=== PATIENT | female | born 1970 | race American Indian/Alaskan Native ===

== ENCOUNTER 2021-01-07 14:53 | Inpatient (IN) | payer MEDICAID, OTHER ==
[2021-01-07] MEDS ORDERED: Sodium Chloride 0.9% 1,000 ML IV ONE ×2 (15:52→18:49)
[2021-01-07] MEDS ORDERED: Ondansetron 4 MG/2 ML SDV IVPUSH ONE (15:52)
--- NOTE | 2021-01-07 16:24 | CR ---
INDICATION: Cough, fever TECHNIQUE: Chest 1 view. COMPARISON: None FINDINGS: The heart size and central vascular pattern are within the normal range. The lungs are clear. No pleural effusions are identified. IMPRESSION: No acute cardiopulmonary disease is evident. Dictated by Fabio Dutton MD @ 01/07/2021 4:22:[address] Fabio Dutton @ Jan 07 2021 4:22PM
[2021-01-07] MEDS ORDERED: cefTRIAXone 1 GM in Premix Bag 1 BAG IV ONE (16:59)
[2021-01-07 17:09] LABS: CARBON DIOXIDE,CO2 20.9 mmol/L (21.0-32.0); POTASSIUM,K 3.6 mmol/L (3.5-5.1)
[2021-01-07] MEDS ORDERED: Iopamidol 755 MG/ML 500 ML Multipack Bottle IVPUSH STA (17:43)
--- NOTE | 2021-01-07 18:08 | CT ---
INDICATION: Right lower quadrant pain TECHNIQUE: CT Abdomen and pelvis with i.v. contrast. Coronal and sagittal reformats were obtained. CONTRAST: 100 mL Isovue 370 COMPARISON: None FINDINGS: Lower chest: Unremarkable. Liver: Unremarkable. Spleen: Unremarkable. Pancreas: Unremarkable. Gallbladder: Unremarkable. Kidney: Mild atrophy of the right kidney is present with a lobulated morphology. Mild enhancement of the right ureteral and renal pelvis urothelium is seen with trace right perinephric edema. Adrenal: Unremarkable. Bowel: Unremarkable. The appendix is normal in appearance and size. A moderate periumbilical fat containing hernia is noted. Vascular: Unremarkable. Lymph: Unremarkable. Peritoneum: Unremarkable. No pneumoperitoneum is seen. No significant ascites is noted. Pelvis: The left uterine myometrium has a swirled appearance measuring 2.8 cm which may be due to uterine fibroid. Soft tissue: Unremarkable. Bone: A tiny bone island is present in the left sacral ala. IMPRESSIONS: 1. A moderate periumbilical fat containing hernia is noted. 2. Mild enhancement of the right ureteral and renal pelvis urothelium is seen with trace right perinephric edema. Correlation with urinalysis is recommended to exclude an ascending urinary tract infection and infectious pyelitis. Dictated by Alon Newell MD @ 01/07/2021 6:06:33 PM Please note that all CT scans at this facility use dose modulation, iterative reconstruction, and/or weight-based dosing when appropriate to reduce radiation dose to as low as reasonably achievable. Dictated by: Alon Newell MD @ 01/07/2021 18:06:39 (Electronically Signed)
[2021-01-07] MEDS ORDERED: Morphine 4 MG/ML Syringe IVPUSH ONE (18:42)
--- NOTE | 2021-01-07 18:56 | EDM.PDOC ---
ED HPI GENERAL MEDICAL PROBLEM - General Chief Complaint: Genitourinary Problem Stated Complaint: UTI PAIN IN KIDNEYS SHAKEY SWEATS AND CHILLS Time Seen by Provider: 01/07/21 14:58 Source of Information: Reports: Patient History Limitations: Reports: No Limitations - History of Present Illness INITIAL COMMENTS - FREE TEXT/NARRATIVE: HISTORY AND PHYSICAL: History of present illness: Patient is a 50-year-old female who presents emergency room today with concern of right-sided abdominal pain, nausea, fatigue that started this morning and worsened throughout the day. Patient states that she is concerned because she has "kidney pain "but states that her whole right abdomen is hurting. Patient states that she has had chills but has not documented a fever at home. Patient states that she has been nauseous and not wanting to eat today due to her symptoms. Patient states that she was playing bingo this afternoon and started feeling "shaky "and states that she felt if she tried to do too much, that she would have to sit down due to weakness. Patient states she has not taken anything for her symptoms. Patient denies fever, chest pain, shortness of breath, or cough. Denies headache, neck stiff ness, change in vision, syncope, or near syncope. Denies vomiting, diarrhea, constipation, or dysuria. Has not noted any blood in urine or stool. Review of systems: As per history of present illness and below otherwise all systems reviewed and negative. Past medical history: As per history of present illness and as reviewed below otherwise noncontributory. Surgical history: As per history of present illness and as reviewed below otherwise noncontributory. Social history: See social history for further information Family history: As per history of present illness and as reviewed below otherwise noncontributory. Physical exam: General: Patient is alert, oriented, and in no acute distress. Patient laying comfortably on exam table, tearful on exam. Mildly tachycardic 105 on exam, otherwise vitally stable and reviewed by me. HEENT: Atraumatic, normocephalic, pupils equal and reactive bilaterally, negative for conjunctival pallor or scleral icterus, mucous membranes moist, TMs normal bilaterally, throat clear, neck supple, nontender, trachea midline. No drooling or trismus noted. No meningeal signs. No hot potato voice noted. Lungs: Clear to auscultation, breath sounds equal bilaterally, chest nontender. Heart: S1S2, regular rate and rhythm without overt murmur Abdomen: Soft, nondistended, moderate right upper and lower abdominal pain and tenderness on exam. Negative for masses or hepatosplenomegaly. Positive for costovertebral tenderness of the right. Pelvis: Stable nontender. Genitourinary: Deferred. Rectal: Deferred. Skin: Intact, warm, dry. No lesions or rashes noted. Extremities: Atraumatic, negative for cords or calf pain. Neurovascular unremarkable. Neuro: Awake, alert, oriented. Cranial nerves II through XII unremarkable. Cere bellum unremarkable. Motor and sensory unremarkable throughout. Exam nonfocal. Notes: Patient is a 50-year-old female who presents to the ED today with concern of right-sided flank/abdominal pain with nausea starting this morning. Upon arrival to the ED, patient is mildly tachycardic 105 on exam, otherwise vitally stable. Patient does have significant right-sided abdominal pain on exam. Will obtain basic lab work with intention of obtaining abdominal pelvic CT scan. CBC shows a leukocytosis at 17.28, red blood cells are decreased at 3.71, with mild decrease of hemoglobin at 11.7, and hematocrit of hematocrit of 35.3. Remainder of CBC unremarkable. CMP shows a mild hyponatremia at 133, CO2 decreased at 20.9. AST and ALT mildly elevated at 59 and 78 respectively. Lactic acid is within normal limits at 1.4. hCG is negative. Urinalysis does show positive nitrate with positive leukocyte Estrace with 15-20 white blood cells, 0-2 red blood cells and 1+ bacteria impression: Acute cystitis. Covid is negative. Blood cultures x2 pending. Chest x-ray shows no acute cardiopulmonary disease. Abdominal pelvic CT scan shows a moderate periumbilical fat-containing hernia. Mild enhancement of the right ureteral and renal pelvis is seen with trace right perinephritic edema. Correlate with urinalysis is recommended to exclude an a sending urinary tract infection or infectious pyelitis. Upon reevaluation of patient, she has improvement of her symptoms with therapeutics given today in the ED. Her heart rate has normalized with fluid bolus in therapeutics and is now 90 bpm and patient remains otherwise vitally stable. I did call and speak to the hospitalist on-call, Dr. Cobb, and thoroughly discussed patient's case. Will admit to observation to Dr. Cobb. Voices understanding and is agreeable to plan of care. Denies any further questions or concerns at this time. Diagnostics: CBC, CMP, UA w culture, chest x-ray, lipase, COVID-19, abdominal pelvic CT with contrast, chest x-ray, lactate, blood cultures x2 Therapeutics: Normal saline, Zofran, morphine, Rocephin 1 g IV Impression: Acute pyelonephritis Plan: Admit to observation to Dr. Cobb Definitive disposition and diagnosis as appropriate pending reevaluation and review of above. 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 Musculoskeletal History: Reports: None Neurological History: Reports: None Psychiatric History: Reports: None Endocrine/Metabolic History: Reports: None Hematologic History: Reports: None Immunologic History: Reports: None Oncologic (Cancer) History: Reports: None Dermatologic History: Reports: None - Infectious Disease History Infectious Disease History: Reports: Chicken Pox, Novel Coronavirus - Past Surgical History Head Surgeries/Procedures: Reports: None Social & Family History - Family History Family Medical History: No Pertinent Family History - Tobacco Use Tobacco Use Status *Q: Former Tobacco User Used Tobacco, but Quit: Yes Month/Year Tobacco Last Used: 1 year - Caffeine Use Caffeine Use: Reports: None - Recreational Drug Use Recreational Drug Use: No ED ROS GENERAL - Review of Systems Review Of Systems: Comprehensive ROS is negative, except as noted in HPI. ED EXAM, GENERAL - Physical Exam Exam: See Below (See dictation) Course - Vital Signs Last Recorded V/S: Last Vital Signs Temp 99.2 F 01/07/21 15:44 Pulse 104 H 01/07/21 15:44 Resp 18 01/07/21 15:44 BP 133/77 01/07/21 15:44 Pulse Ox 98 01/07/21 15:44 - Orders/Labs/Meds Orders: Active Orders 24 hr Category Date Time Status CULTURE BLOOD [BC] Stat Lab 01/07/21 17:15 Received CULTURE BLOOD [BC] Stat Lab 01/07/21 17:20 Received CULTURE URINE [MREF] Stat Lab 01/07/21 16:30 Received Blood Culture x2 Reflex Set [OM.PC] Stat Oth 01/07/21 16:59 Ordered Labs: Laboratory Tests 01/07/21 01/07/21 01/07/21 Range/Units 16:30 16:30 16:30 WBC 17.28 H (4.0-11.0) K/uL RBC 3.71 L (4.30-5.90) M/uL Hgb 11.7 L (12.0-16.0) g/dL Hct 35.3 L (36.0-46.0) % MCV 95.1 (80.0-98.0) fL MCH 31.5 (27.0-32.0) pg MCHC 33.1 (31.0-37.0) g/dL RDW Std Deviation 46.3 (28.0-62.0) fl RDW Coeff of Xavier 13 (11.0-15.0) % Plt Count 252 (150-400) K/uL MPV 11.80 (7.40-12.00) fL Neut % (Auto) 87.2 H (48.0-80.0) % Lymph % (Auto) 5.8 L (16.0-40.0) % [place] % (Auto) 6.1 (0.0-15.0) % Eos % (Auto) 0.8 (0.0-7.0) % Baso % (Auto) 0.1 (0.0-1.5) % Neut # (Auto) 15.1 H (1.4-5.7) K/uL Lymph # (Auto) 1.0 (0.6-2.4) K/uL [place] # (Auto) 1.1 H (0.0-0.8) K/uL Eos # (Auto) 0.1 (0.0-0.7) K/uL Baso # (Auto) 0.0 (0.0-0.1) K/uL Nucleated RBC % 0.0 /100WBC Nucleated RBCs # 0 K/uL Sodium 133 L (136-145) mmol/L Potassium 3.6 (3.5-5.1) mmol/L Chloride 100 (98-107) mmol/L Carbon Dioxide 20.9 L (21.0-32.0) mmol/L BUN 17 (7.0-18.0) mg/dL Creatinine 1.0 (0.6-1.0) mg/dL Est Cr Clr Drug Dosing 67.14 mL/min Estimated GFR (MDRD) 58.5 ml/min Glucose 100 (74-106) mg/dL Lactic Acid (0.4-2.0) mmol/L Calcium 8.8 (8.5-10.1) mg/dL Total Bilirubin 0.8 (0.2-1.0) mg/dL AST 59 H (15-37) IU/L ALT 78 H (14-63) IU/L Alkaline Phosphatase 111 (46-116) U/L Total Protein 7.7 (6.4-8.2) g/dL Albumin 3.7 (3.4-5.0) g/dL Globulin 4.0 (2.6-4.0) g/dL Albumin/Globulin Ratio 0.9 (0.9-1.6) Lipase 83 (73-393) U/L HCG, Qual (NEG) Urine Color YELLOW Urine Appearance SLT CLOUDY Urine pH 8.0 (5.0-8.0) Ur Specific [place] 1.020 (1.001-1.035) Urine Protein TRACE H (NEGATIVE) mg/dL Urine Glucose (UA) NEGATIVE (NEGATIVE) mg/dL Urine Ketones NEGATIVE (NEGATIVE) mg/dL Urine Occult Blood TRACE-INTACT H (NEGATIVE) Urine Nitrite POSITIVE H (NEGATIVE) Urine Bilirubin NEGATIVE (NEGATIVE) Urine Urobilinogen 0.2 (<2.0) EU/dL Ur Leukocyte Esterase MODERATE H (NEGATIVE) Urine RBC 0-2 (0-2/HPF) Urine WBC 15-20 (0-5/HPF) Ur Epithelial Cells RARE (NONE-FEW) Urine Bacteria 1+ H (NEGATIVE) SARS-CoV-2 RNA ([place]) (NEGATIVE) 01/07/21 01/07/21 01/07/21 Range/Units 16:30 16:30 17:15 WBC (4.0-11.0) K/uL RBC (4.30-5.90) M/uL Hgb (12.0-16.0) g/dL Hct (36.0-46.0) % MCV (80.0-98.0) fL MCH (27.0-32.0) pg MCHC (31.0-37.0) g/dL RDW Std Deviation (28.0-62.0) fl RDW Coeff of Xavier (11.0-15.0) % Plt Count (150-400) K/uL MPV (7.40-12.00) fL Neut % (Auto) (48.0-80.0) % Lymph % (Auto) (16.0-40.0) % [place] % (Auto) (0.0-15.0) % Eos % (Auto) (0.0-7.0) % Baso % (Auto) (0.0-1.5) % Neut # (Auto) (1.4-5.7) K/uL Lymph # (Auto) (0.6-2.4) K/uL [place] # (Auto) (0.0-0.8) K/uL Eos # (Auto) (0.0-0.7) K/uL Baso # (Auto) (0.0-0.1) K/uL Nucleated RBC % /100WBC Nucleated RBCs # K/uL Sodium (136-145) mmol/L Potassium (3.5-5.1) mmol/L Chloride (98-107) mmol/L Carbon Dioxide (21.0-32.0) mmol/L BUN (7.0-18.0) mg/dL Creatinine (0.6-1.0) mg/dL Est Cr Clr Drug Dosing mL/min Estimated GFR (MDRD) ml/min Glucose (74-106) mg/dL Lactic Acid 1.4 (0.4-2.0) mmol/L Calcium (8.5-10.1) mg/dL Total Bilirubin (0.2-1.0) mg/dL AST (15-37) IU/L ALT (14-63) IU/L Alkaline Phosphatase (46-116) U/L Total Protein (6.4-8.2) g/dL Albumin (3.4-5.0) g/dL Globulin (2.6-4.0) g/dL Albumin/Globulin Ratio (0.9-1.6) Lipase (73-393) U/L HCG, Qual NEGATIVE (NEG) Urine Color Urine Appearance Urine pH (5.0-8.0) Ur Specific [place] (1.001-1.035) Urine Protein (NEGATIVE) mg/dL Urine Glucose (UA) (NEGATIVE) mg/dL Urine Ketones (NEGATIVE) mg/dL Urine Occult Blood (NEGATIVE) Urine Nitrite (NEGATIVE) Urine Bilirubin (NEGATIVE) Urine Urobilinogen (<2.0) EU/dL Ur Leukocyte Esterase (NEGATIVE) Urine RBC (0-2/HPF) Urine WBC (0-5/HPF) Ur Epithelial Cells (NONE-FEW) Urine Bacteria (NEGATIVE) SARS-CoV-2 RNA ([place]) NEGATIVE (NEGATIVE) Meds: Medications Discontinued Medications Generic Name Dose Route Start Last Admin Trade Name Freq PRN Reason Stop Dose Admin Sodium Chloride 1,000 mls @ 999 mls/hr 01/07/21 15:52 01/07/21 16:34 Normal Saline IV 01/07/21 16:52 999 mls/hr BOLUS ONE Administration Ceftriaxone Sodium/Dextrose 1 50 mls @ 100 mls/hr 01/07/21 16:59 01/07/21 17:44 gm/ Premix IV 01/07/21 17:28 100 mls/hr ONETIME ONE Administration Sodium Chloride 1,000 mls @ 999 mls/hr 01/07/21 18:49 Normal Saline IV 01/07/21 19:49 STAT ONE Iopamidol 100 ml 01/07/21 17:43 01/07/21 17:43 Iopamidol 755 Mg/Ml 500 Ml Multipack Bottle IVPUSH 01/07/21 17:44 100 ml ONETIME STA Administration Morphine Sulfate 4 mg 01/07/21 18:42 Morphine 4 Mg/Ml Syringe IVPUSH 01/07/21 18:43 ONETIME ONE Ondansetron HCl 4 mg 01/07/21 15:52 01/07/21 16:34 Ondansetron 4 Mg/2 Ml Sdv IVPUSH 01/07/21 15:53 4 mg ONETIME ONE Administration Departure - Departure Time of Disposition: 18:57 Disposition: Refer to Observation Clinical Impression: Acute pyelonephritis - Discharge Information Sepsis Event Note (ED) - Evaluation Sepsis Screening Result: No Definite Risk - Focused Exam Vital Signs: Vital Signs Temp Pulse Resp BP Pulse Ox 01/07/21 15:44 99.2 F 104 H 18 133/77 98 - My Orders Last 24 Hours: My Active Orders 01/07/21 16:30 CULTURE URINE [MREF] Stat 01/07/21 16:59 Blood Culture x2 Reflex Set [OM.PC] Stat 01/07/21 17:15 CULTURE BLOOD [BC] Stat 01/07/21 17:20 CULTURE BLOOD [BC] Stat - Assessment/Plan Last 24 Hours: My Active Orders 01/07/21 16:30 CULTURE URINE [MREF] Stat 01/07/21 16:59 Blood Culture x2 Reflex Set [OM.PC] Stat 01/07/21 17:15 CULTURE BLOOD [BC] Stat 01/07/21 17:20 CULTURE BLOOD [BC] Stat
[2021-01-07] MEDS ORDERED: Morphine 4 MG/ML Syringe ONE (21:09)
[2021-01-07] MEDS ORDERED: Acetaminophen 325 MG Tab PO PRN (23:22)
[2021-01-07] MEDS ORDERED: Sodium Chloride 0.9% 1,000 ML IV SCH (23:30)
--- NOTE | 2021-01-07 23:32 | PCM.HP.2 ---
H&P History of Present Illness - General Date of Service: 01/07/21 Admit Problem/Dx: Admission Diagnosis/Problem Admission Diagnosis/Problem Acute pyelonephritis - History of Present Illness Initial Comments - Free Text/Narative: 50 yo female who presented with one day history of right kidney pain, and dysuria and urinary urgency. Patient report history of frequent UTIs. She was found to have WBC of 17,000 and pyuria on UA. CT scan of abdomen reported right ureteral and renal pelvic enhancement with sligh perinephric edema. Right Lower Flank Pain Score (Numeric/FACES): 5 bilateral lower abdomen Pain Score (Numeric/FACES): 6 - Related Data Allergies/Adverse Reactions: Allergies Allergy/AdvReac Type Severity Reaction Status Date / Time naproxen Allergy Hives Verified 01/07/21 22:54 Home Medications: Home Meds Folic Acid 01/07/21 [History] Lidocaine 1 each TP ASDIRECTED PRN 01/07/21 [History] Multivitamin [Multi-Vitamin Daily] 01/07/21 [History] Thiamine HCl [Vitamin B-1] 01/07/21 [History] Past Medical History HEENT History: Reports: None Cardiovascular History: Reports: None Respiratory History: Reports: None Gastrointestinal History: Reports: Pancreatitis Genitourinary History: Reports: None 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 Musculoskeletal History: Reports: None Neurological History: Reports: None Psychiatric History: Reports: None Endocrine/Metabolic History: Reports: None Hematologic History: Reports: None Immunologic History: Reports: None Oncologic (Cancer) History: Reports: None Dermatologic History: Reports: None - Infectious Disease History Infectious Disease History: Reports: Chicken Pox, Novel Coronavirus - Past Surgical History Head Surgeries/Procedures: Reports: None Social & Family History - Family History Family Medical History: No Pertinent Family History - Tobacco Use Tobacco Use Status *Q: Former Tobacco User Used Tobacco, but Quit: Yes Month/Year Tobacco Last Used: 3 weeks ago - Caffeine Use Caffeine Use: Reports: Coffee, Soda, Tea - Recreational Drug Use Recreational Drug Use: No H&P Review of Systems - Review of Systems: Review Of Systems: Comprehensive ROS is negative, except as noted in HPI. Exam - Exam Exam: See Below - Vital Signs Vital Signs: Last Vital Signs Temp 36.7 C 01/07/21 22:20 Pulse 78 01/07/21 22:20 Resp 18 01/07/21 22:20 BP 116/67 01/07/21 22:20 Pulse Ox 100 01/07/21 22:20 Weight: 70.896 kg - Exam General: Alert, Oriented HEENT: Mucosa Moist & [place] Lungs: Clear to Auscultation, Normal Respiratory Effort Cardiovascular: Regular Rate, Regular Rhythm GI/Abdominal Exam: Soft, Non-Tender Back Exam: CVA Tenderness (R) Extremities: Non-Tender, No Pedal Edema Skin: Warm, Dry, Intact Neurological: No: Focal Deficit - Patient Data Lab Results Last 24 hrs: Laboratory Results - last 24 hr 01/07/21 01/07/21 01/07/21 Range/Units 16:30 16:30 16:30 WBC 17.28 H (4.0-11.0) K/uL RBC 3.71 L (4.30-5.90) M/uL Hgb 11.7 L (12.0-16.0) g/dL Hct 35.3 L (36.0-46.0) % MCV 95.1 (80.0-98.0) fL MCH 31.5 (27.0-32.0) pg MCHC 33.1 (31.0-37.0) g/dL RDW Std Deviation 46.3 (28.0-62.0) fl RDW Coeff of Xavier 13 (11.0-15.0) % Plt Count 252 (150-400) K/uL MPV 11.80 (7.40-12.00) fL Neut % (Auto) 87.2 H (48.0-80.0) % Lymph % (Auto) 5.8 L (16.0-40.0) % [place] % (Auto) 6.1 (0.0-15.0) % Eos % (Auto) 0.8 (0.0-7.0) % Baso % (Auto) 0.1 (0.0-1.5) % Neut # (Auto) 15.1 H (1.4-5.7) K/uL Lymph # (Auto) 1.0 (0.6-2.4) K/uL [place] # (Auto) 1.1 H (0.0-0.8) K/uL Eos # (Auto) 0.1 (0.0-0.7) K/uL Baso # (Auto) 0.0 (0.0-0.1) K/uL Nucleated RBC % 0.0 /100WBC Nucleated RBCs # 0 K/uL Sodium 133 L (136-145) mmol/L Potassium 3.6 (3.5-5.1) mmol/L Chloride 100 (98-107) mmol/L Carbon Dioxide 20.9 L (21.0-32.0) mmol/L BUN 17 (7.0-18.0) mg/dL Creatinine 1.0 (0.6-1.0) mg/dL Est Cr Clr Drug Dosing 67.14 mL/min Estimated GFR (MDRD) 58.5 ml/min Glucose 100 (74-106) mg/dL Lactic Acid (0.4-2.0) mmol/L Calcium 8.8 (8.5-10.1) mg/dL Total Bilirubin 0.8 (0.2-1.0) mg/dL AST 59 H (15-37) IU/L ALT 78 H (14-63) IU/L Alkaline Phosphatase 111 (46-116) U/L Total Protein 7.7 (6.4-8.2) g/dL Albumin 3.7 (3.4-5.0) g/dL Globulin 4.0 (2.6-4.0) g/dL Albumin/Globulin Ratio 0.9 (0.9-1.6) Lipase 83 (73-393) U/L HCG, Qual (NEG) Urine Color YELLOW Urine Appearance SLT CLOUDY Urine pH 8.0 (5.0-8.0) Ur Specific [place] 1.020 (1.001-1.035) Urine Protein TRACE H (NEGATIVE) mg/dL Urine Glucose (UA) NEGATIVE (NEGATIVE) mg/dL Urine Ketones NEGATIVE (NEGATIVE) mg/dL Urine Occult Blood TRACE-INTACT H (NEGATIVE) Urine Nitrite POSITIVE H (NEGATIVE) Urine Bilirubin NEGATIVE (NEGATIVE) Urine Urobilinogen 0.2 (<2.0) EU/dL Ur Leukocyte Esterase MODERATE H (NEGATIVE) Urine RBC 0-2 (0-2/HPF) Urine WBC 15-20 (0-5/HPF) Ur Epithelial Cells RARE (NONE-FEW) Urine Bacteria 1+ H (NEGATIVE) SARS-CoV-2 RNA ([place]) (NEGATIVE) 01/07/21 01/07/21 01/07/21 Range/Units 16:30 16:30 17:15 WBC (4.0-11.0) K/uL RBC (4.30-5.90) M/uL Hgb (12.0-16.0) g/dL Hct (36.0-46.0) % MCV (80.0-98.0) fL MCH (27.0-32.0) pg MCHC (31.0-37.0) g/dL RDW Std Deviation (28.0-62.0) fl RDW Coeff of Xavier (11.0-15.0) % Plt Count (150-400) K/uL MPV (7.40-12.00) fL Neut % (Auto) (48.0-80.0) % Lymph % (Auto) (16.0-40.0) % [place] % (Auto) (0.0-15.0) % Eos % (Auto) (0.0-7.0) % Baso % (Auto) (0.0-1.5) % Neut # (Auto) (1.4-5.7) K/uL Lymph # (Auto) (0.6-2.4) K/uL [place] # (Auto) (0.0-0.8) K/uL Eos # (Auto) (0.0-0.7) K/uL Baso # (Auto) (0.0-0.1) K/uL Nucleated RBC % /100WBC Nucleated RBCs # K/uL Sodium (136-145) mmol/L Potassium (3.5-5.1) mmol/L Chloride (98-107) mmol/L Carbon Dioxide (21.0-32.0) mmol/L BUN (7.0-18.0) mg/dL Creatinine (0.6-1.0) mg/dL Est Cr Clr Drug Dosing mL/min Estimated GFR (MDRD) ml/min Glucose (74-106) mg/dL Lactic Acid 1.4 (0.4-2.0) mmol/L Calcium (8.5-10.1) mg/dL Total Bilirubin (0.2-1.0) mg/dL AST (15-37) IU/L ALT (14-63) IU/L Alkaline Phosphatase (46-116) U/L Total Protein (6.4-8.2) g/dL Albumin (3.4-5.0) g/dL Globulin (2.6-4.0) g/dL Albumin/Globulin Ratio (0.9-1.6) Lipase (73-393) U/L HCG, Qual NEGATIVE (NEG) Urine Color Urine Appearance Urine pH (5.0-8.0) Ur Specific [place] (1.001-1.035) Urine Protein (NEGATIVE) mg/dL Urine Glucose (UA) (NEGATIVE) mg/dL Urine Ketones (NEGATIVE) mg/dL Urine Occult Blood (NEGATIVE) Urine Nitrite (NEGATIVE) Urine Bilirubin (NEGATIVE) Urine Urobilinogen (<2.0) EU/dL Ur Leukocyte Esterase (NEGATIVE) Urine RBC (0-2/HPF) Urine WBC (0-5/HPF) Ur Epithelial Cells (NONE-FEW) Urine Bacteria (NEGATIVE) SARS-CoV-2 RNA ([place]) NEGATIVE (NEGATIVE) Result Diagrams: 01/08/21 05:20 01/08/21 05:18 Sepsis Event Note - Evaluation Sepsis Screening Result: No Definite Risk - Focused Exam Vital Signs: Vital Signs Temp Pulse Resp BP Pulse Ox 01/07/21 22:20 36.7 C 78 18 116/67 100 01/07/21 21:30 80 102/65 99 01/07/21 21:16 84 18 107/61 98 01/07/21 20:13 80 102/67 89 L 01/07/21 19:43 80 97/53 L 96 01/07/21 19:13 80 102/62 96 01/07/21 18:13 80 100/59 L 96 01/07/21 15:44 37.3 C 104 H 18 133/77 98 Problem List Initiated/Reviewed/Updated: Yes Orders Last 24hrs: Active Orders 24 hr Category Date Time Status Admission Status [Patient Status] [ADT] Stat ADT 01/07/21 18:43 Active Antiembolic Devices [RC] PER UNIT ROUTINE Care 01/07/21 23:24 Ordered Oxygen Therapy [RC] PRN Care 01/07/21 23:22 Ordered Up ad Sandra [RC] ASDIRECTED Care 01/07/21 23:22 Ordered VTE/DVT Education [RC] PER UNIT ROUTINE Care 01/07/21 23:22 Ordered Vital Signs [RC] Q4H Care 01/07/21 23:22 Ordered Regular Diet [DIET] Diet 01/07/21 Breakfast Ordered BASIC METABOLIC PANEL,BMP [CHEM] AM Lab 01/08/21 05:11 Ordered CBC WITH AUTO DIFF [HEME] AM Lab 01/08/21 05:11 Ordered CULTURE BLOOD [BC] Stat Lab 01/07/21 17:15 Received CULTURE BLOOD [BC] Stat Lab 01/07/21 17:20 Received CULTURE URINE [MREF] Stat Lab 01/07/21 16:30 Received Acetaminophen [TylenoL] Med 01/07/21 23:22 Ordered 650 mg PO Q6H PRN Enoxaparin [Lovenox] Med 01/07/21 23:30 Ordered 40 mg SUBCUT Q24H Sodium Chloride 0.9% @ 125 MLS/HR (1000ml) Med 01/07/21 23:30 Ordered Sodium Chloride 0.9% [Normal Saline] 1,000 ml IV ASDIRECTED cefTRIAXone [Rocephin] 1 gm Med 01/08/21 17:55 Ordered Sodium Chloride 0.9% [Normal Saline] 50 ml IV Q24H oxyCODONE Med 01/07/21 23:22 Ordered 5 mg PO Q4H PRN Blood Culture x2 Reflex Set [OM.PC] Stat Oth 01/07/21 16:59 Ordered Sequential Compression Device [OM.PC] Per Unit Routine Oth 01/07/21 23:23 Ordered Resuscitation Status Routine Resus Stat 01/07/21 23:22 Ordered Medication Orders Ceftriaxone Sodium 1 gm/ (Sodium Chloride) 50 mls @ 100 mls/hr IV Q24H BRANDON Assessment/Plan Comment:: 50 yo female admitted for pyelonephritis. We will treat with IV Rocephin. Cultures are pending.
[2021-01-07] MEDS: Enoxaparin 40 MG/0.4 ML Syringe SUBCUT SCH (23:41)
[2021-01-07] MEDS: oxyCODONE 5 MG Tab PO PRN (23:43)
[2021-01-08 06:15] LABS: BLOOD UREA NITROGEN,BUN 11 mg/dL (7.0-18.0); CARBON DIOXIDE,CO2 24.5 mmol/L (21.0-32.0); CHLORIDE,CL 105 mmol/L (98-107); GLUCOSE RANDOM 87 mg/dL (74-106); POTASSIUM,K 3.3 mmol/L (3.5-5.1); SODIUM,NA 137 mmol/L (136-145)
[2021-01-08] MEDS ORDERED: Ondansetron 4 MG/2 ML SDV IVPUSH PRN (08:12)
[2021-01-08] MEDS ORDERED: Sodium Chloride 0.9% 500 ML IV SCH (08:15)
--- NOTE | 2021-01-08 08:18 | PCM.PN ---
- General Info Date of Service: 01/08/21 Admission Dx/Problem (Free Text): Admission Diagnosis/Problem Admission Diagnosis/Problem Acute pyelonephritis Subjective Update: Feeling somewhat improved from last night. Reports intermittent sharp shooting abdominal pain/flank pain. No diarrhea since yesterday. NO nausea or vomiting. Denies chest pain or SOB. Eating and drinking well. Functional Status: Reports: Pain Controlled (oxycodone helps manage pain well. ), Tolerating Diet, Ambulating - Review of Systems General: Reports: Fatigue, Malaise. Denies: Fever, Weakness HEENT: Reports: No Symptoms, Headaches. Denies: Sore Throat, Visual Changes Pulmonary: Reports: No Symptoms. Denies: Shortness of Breath Cardiovascular: Reports: No Symptoms. Denies: Chest Pain Gastrointestinal: Reports: Abdominal Pain, Flatus. Denies: Diarrhea, Nausea, Vomiting Genitourinary: Reports: No Symptoms. Denies: Dysuria, Frequency, Burning Musculoskeletal: Reports: No Symptoms Skin: Reports: No Symptoms Neurological: Reports: No Symptoms Psychiatric: Reports: No Symptoms - Patient Data Vitals - Most Recent: Last Vital Signs Temp 98.6 F 01/08/21 08:00 Pulse 85 01/08/21 08:00 Resp 16 01/08/21 08:00 BP 98/57 L 01/08/21 08:00 Pulse Ox 94 L 01/08/21 08:00 Weight - Most Recent: 70.896 kg I&O - Last 24 Hours: Intake & Output 01/07/21 01/08/21 01/08/21 22:59 06:59 14:59 Intake Total 1106 Output Total 450 Balance 656 Lab Results Last 24 Hours: Laboratory Results - last 24 hr 01/07/21 01/07/21 01/07/21 Range/Units 16:30 16:30 16:30 WBC 17.28 H (4.0-11.0) K/uL RBC 3.71 L (4.30-5.90) M/uL Hgb 11.7 L (12.0-16.0) g/dL Hct 35.3 L (36.0-46.0) % MCV 95.1 (80.0-98.0) fL MCH 31.5 (27.0-32.0) pg MCHC 33.1 (31.0-37.0) g/dL RDW Std Deviation 46.3 (28.0-62.0) fl RDW Coeff of Xavier 13 (11.0-15.0) % Plt Count 252 (150-400) K/uL MPV 11.80 (7.40-12.00) fL Neut % (Auto) 87.2 H (48.0-80.0) % Lymph % (Auto) 5.8 L (16.0-40.0) % [place] % (Auto) 6.1 (0.0-15.0) % Eos % (Auto) 0.8 (0.0-7.0) % Baso % (Auto) 0.1 (0.0-1.5) % Neut # (Auto) 15.1 H (1.4-5.7) K/uL Lymph # (Auto) 1.0 (0.6-2.4) K/uL Webster # (Auto) 1.1 H (0.0-0.8) K/uL Eos # (Auto) 0.1 (0.0-0.7) K/uL Baso # (Auto) 0.0 (0.0-0.1) K/uL Nucleated RBC % 0.0 /100WBC Nucleated RBCs # 0 K/uL Sodium 133 L (136-145) mmol/L Potassium 3.6 (3.5-5.1) mmol/L Chloride 100 (98-107) mmol/L Carbon Dioxide 20.9 L (21.0-32.0) mmol/L BUN 17 (7.0-18.0) mg/dL Creatinine 1.0 (0.6-1.0) mg/dL Est Cr Clr Drug Dosing 67.14 mL/min Estimated GFR (MDRD) 58.5 ml/min Glucose 100 (74-106) mg/dL Lactic Acid (0.4-2.0) mmol/L Calcium 8.8 (8.5-10.1) mg/dL Total Bilirubin 0.8 (0.2-1.0) mg/dL AST 59 H (15-37) IU/L ALT 78 H (14-63) IU/L Alkaline Phosphatase 111 (46-116) U/L Total Protein 7.7 (6.4-8.2) g/dL Albumin 3.7 (3.4-5.0) g/dL Globulin 4.0 (2.6-4.0) g/dL Albumin/Globulin Ratio 0.9 (0.9-1.6) Lipase 83 (73-393) U/L HCG, Qual (NEG) Urine Color YELLOW Urine Appearance SLT CLOUDY Urine pH 8.0 (5.0-8.0) Ur Specific [place] 1.020 (1.001-1.035) Urine Protein TRACE H (NEGATIVE) mg/dL Urine Glucose (UA) NEGATIVE (NEGATIVE) mg/dL Urine Ketones NEGATIVE (NEGATIVE) mg/dL Urine Occult Blood TRACE-INTACT H (NEGATIVE) Urine Nitrite POSITIVE H (NEGATIVE) Urine Bilirubin NEGATIVE (NEGATIVE) Urine Urobilinogen 0.2 (<2.0) EU/dL Ur Leukocyte Esterase MODERATE H (NEGATIVE) Urine RBC 0-2 (0-2/HPF) Urine WBC 15-20 (0-5/HPF) Ur Epithelial Cells RARE (NONE-FEW) Urine Bacteria 1+ H (NEGATIVE) SARS-CoV-2 RNA ([place]) (NEGATIVE) 01/07/21 01/07/21 01/07/21 Range/Units 16:30 16:30 17:15 WBC (4.0-11.0) K/uL RBC (4.30-5.90) M/uL Hgb (12.0-16.0) g/dL Hct (36.0-46.0) % MCV (80.0-98.0) fL MCH (27.0-32.0) pg MCHC (31.0-37.0) g/dL RDW Std Deviation (28.0-62.0) fl RDW Coeff of Xavier (11.0-15.0) % Plt Count (150-400) K/uL MPV (7.40-12.00) fL Neut % (Auto) (48.0-80.0) % Lymph % (Auto) (16.0-40.0) % [place] % (Auto) (0.0-15.0) % Eos % (Auto) (0.0-7.0) % Baso % (Auto) (0.0-1.5) % Neut # (Auto) (1.4-5.7) K/uL Lymph # (Auto) (0.6-2.4) K/uL [place] # (Auto) (0.0-0.8) K/uL Eos # (Auto) (0.0-0.7) K/uL Baso # (Auto) (0.0-0.1) K/uL Nucleated RBC % /100WBC Nucleated RBCs # K/uL Sodium (136-145) mmol/L Potassium (3.5-5.1) mmol/L Chloride (98-107) mmol/L Carbon Dioxide (21.0-32.0) mmol/L BUN (7.0-18.0) mg/dL Creatinine (0.6-1.0) mg/dL Est Cr Clr Drug Dosing mL/min Estimated GFR (MDRD) ml/min Glucose (74-106) mg/dL Lactic Acid 1.4 (0.4-2.0) mmol/L Calcium (8.5-10.1) mg/dL Total Bilirubin (0.2-1.0) mg/dL AST (15-37) IU/L ALT (14-63) IU/L Alkaline Phosphatase (46-116) U/L Total Protein (6.4-8.2) g/dL Albumin (3.4-5.0) g/dL Globulin (2.6-4.0) g/dL Albumin/Globulin Ratio (0.9-1.6) Lipase (73-393) U/L HCG, Qual NEGATIVE (NEG) Urine Color Urine Appearance Urine pH (5.0-8.0) Ur Specific [place] (1.001-1.035) Urine Protein (NEGATIVE) mg/dL Urine Glucose (UA) (NEGATIVE) mg/dL Urine Ketones (NEGATIVE) mg/dL Urine Occult Blood (NEGATIVE) Urine Nitrite (NEGATIVE) Urine Bilirubin (NEGATIVE) Urine Urobilinogen (<2.0) EU/dL Ur Leukocyte Esterase (NEGATIVE) Urine RBC (0-2/HPF) Urine WBC (0-5/HPF) Ur Epithelial Cells (NONE-FEW) Urine Bacteria (NEGATIVE) SARS-CoV-2 RNA ([place]) NEGATIVE (NEGATIVE) 01/08/21 01/08/21 Range/Units 05:18 05:20 WBC 14.20 H (4.0-11.0) K/uL RBC 3.32 L (4.30-5.90) M/uL Hgb 10.6 L (12.0-16.0) g/dL Hct 31.8 L (36.0-46.0) % MCV 95.8 (80.0-98.0) fL MCH 31.9 (27.0-32.0) pg MCHC 33.3 (31.0-37.0) g/dL RDW Std Deviation 48.1 (28.0-62.0) fl RDW Coeff of Xavier 14 (11.0-15.0) % Plt Count 214 (150-400) K/uL MPV 12.00 (7.40-12.00) fL Neut % (Auto) 81.8 H (48.0-80.0) % Lymph % (Auto) 10.4 L (16.0-40.0) % [place] % (Auto) 6.5 (0.0-15.0) % Eos % (Auto) 1.1 (0.0-7.0) % Baso % (Auto) 0.2 (0.0-1.5) % Neut # (Auto) 11.6 H (1.4-5.7) K/uL Lymph # (Auto) 1.5 (0.6-2.4) K/uL [place] # (Auto) 0.9 H (0.0-0.8) K/uL Eos # (Auto) 0.2 (0.0-0.7) K/uL Baso # (Auto) 0.0 (0.0-0.1) K/uL Nucleated RBC % 0.0 /100WBC Nucleated RBCs # 0 K/uL Sodium 137 (136-145) mmol/L Potassium 3.3 L (3.5-5.1) mmol/L Chloride 105 (98-107) mmol/L Carbon Dioxide 24.5 (21.0-32.0) mmol/L BUN 11 (7.0-18.0) mg/dL Creatinine 0.8 (0.6-1.0) mg/dL Est Cr Clr Drug Dosing 84.26 mL/min Estimated GFR (MDRD) > 60.0 ml/min Glucose 87 (74-106) mg/dL Lactic Acid (0.4-2.0) mmol/L Calcium 8.0 L (8.5-10.1) mg/dL Total Bilirubin (0.2-1.0) mg/dL AST (15-37) IU/L ALT (14-63) IU/L Alkaline Phosphatase (46-116) U/L Total Protein (6.4-8.2) g/dL Albumin (3.4-5.0) g/dL Globulin (2.6-4.0) g/dL Albumin/Globulin Ratio (0.9-1.6) Lipase (73-393) U/L HCG, Qual (NEG) Urine Color Urine Appearance Urine pH (5.0-8.0) Ur Specific [place] (1.001-1.035) Urine Protein (NEGATIVE) mg/dL Urine Glucose (UA) (NEGATIVE) mg/dL Urine Ketones (NEGATIVE) mg/dL Urine Occult Blood (NEGATIVE) Urine Nitrite (NEGATIVE) Urine Bilirubin (NEGATIVE) Urine Urobilinogen (<2.0) EU/dL Ur Leukocyte Esterase (NEGATIVE) Urine RBC (0-2/HPF) Urine WBC (0-5/HPF) Ur Epithelial Cells (NONE-FEW) Urine Bacteria (NEGATIVE) SARS-CoV-2 RNA ([place]) (NEGATIVE) Med Orders - Current: Current Medications Acetaminophen (Acetaminophen 325 Mg Tab) 650 mg PO Q6H PRN PRN Reason: Pain (Mild 1-3)/fever Last Admin: 01/08/21 05:23 Dose: 650 mg Documented by: Enoxaparin Sodium (Enoxaparin 40 Mg/0.4 Ml Syringe) 40 mg SUBCUT Q24H BRANDON Last Admin: 01/07/21 23:41 Dose: 40 mg Documented by: Ceftriaxone Sodium 1 gm/ (Sodium Chloride) 50 mls @ 100 mls/hr IV Q24H BRANDON Sodium Chloride (Normal Saline) 500 mls @ 999 mls/hr IV .BOLUS BRANDON Sodium Chloride (Normal Saline) 1,000 mls @ 125 mls/hr IV Q8H BRANDON Ondansetron HCl (Ondansetron 4 Mg/2 Ml Sdv) 4 mg IVPUSH Q4H PRN PRN Reason: Nausea Oxycodone HCl (Oxycodone 5 Mg Tab) 5 mg PO Q4H PRN PRN Reason: Pain (moderate 4-6) Last Admin: 01/07/21 23:43 Dose: 5 mg Documented by: Discontinued Medications Sodium Chloride (Normal Saline) 1,000 mls @ 999 mls/hr IV BOLUS ONE Stop: 01/07/21 16:52 Last Admin: 01/07/21 16:34 Dose: 999 mls/hr Documented by: Ceftriaxone Sodium/Dextrose 1 (gm/ Premix) 50 mls @ 100 mls/hr IV ONETIME ONE Stop: 01/07/21 17:28 Last Admin: 01/07/21 17:44 Dose: 100 mls/hr Documented by: Sodium Chloride (Normal Saline) 1,000 mls @ 999 mls/hr IV STAT ONE Stop: 01/07/21 19:49 Last Admin: 01/07/21 21:06 Dose: 999 mls/hr Documented by: Sodium Chloride (Normal Saline) 1,000 mls @ 125 mls/hr IV ASDIRECTED BRANDON Stop: 01/08/21 07:29 Last Admin: 01/07/21 23:42 Dose: 125 mls/hr Documented by: Iopamidol (Iopamidol 755 Mg/Ml 500 Ml Multipack Bottle) 100 ml IVPUSH ONETIME STA Stop: 01/07/21 17:44 Last Admin: 01/07/21 17:43 Dose: 100 ml Documented by: Morphine Sulfate (Morphine 4 Mg/Ml Syringe) 4 mg IVPUSH ONETIME ONE Stop: 01/07/21 18:43 Last Admin: 01/07/21 21:10 Dose: 4 mg Documented by: Morphine Sulfate (Morphine 4 Mg/Ml Syringe) Confirm Administered Dose 4 mg .ROUTE .STK-MED ONE Stop: 01/07/21 21:10 Last Admin: 01/07/21 23:54 Dose: Not Given Documented by: Ondansetron HCl (Ondansetron 4 Mg/2 Ml Sdv) 4 mg IVPUSH ONETIME ONE Stop: 01/07/21 15:53 Last Admin: 01/07/21 16:34 Dose: 4 mg Documented by: - Exam General: Alert, Oriented, Cooperative, No Acute Distress HEENT: Pupils Equal, Pupils Reactive Lungs: Clear to Auscultation, Normal Respiratory Effort Cardiovascular: Regular Rate, Regular Rhythm GI/Abdominal Exam: Normal Bowel Sounds, Soft, Tender (diffuse) Back Exam: CVA Tenderness (R) Extremities: Normal Inspection, Normal Range of Motion, Non-Tender, No Pedal Edema Neurological: No New Focal Deficit Psy/Mental Status: Alert, Normal Affect, Normal Mood - Patient Data Lab Results Last 24 hrs: Laboratory Results - last 24 hr 01/07/21 01/07/21 01/07/21 Range/Units 16:30 16:30 16:30 WBC 17.28 H (4.0-11.0) K/uL RBC 3.71 L (4.30-5.90) M/uL Hgb 11.7 L (12.0-16.0) g/dL Hct 35.3 L (36.0-46.0) % MCV 95.1 (80.0-98.0) fL MCH 31.5 (27.0-32.0) pg MCHC 33.1 (31.0-37.0) g/dL RDW Std Deviation 46.3 (28.0-62.0) fl RDW Coeff of Xavier 13 (11.0-15.0) % Plt Count 252 (150-400) K/uL MPV 11.80 (7.40-12.00) fL Neut % (Auto) 87.2 H (48.0-80.0) % Lymph % (Auto) 5.8 L (16.0-40.0) % [place] % (Auto) 6.1 (0.0-15.0) % Eos % (Auto) 0.8 (0.0-7.0) % Baso % (Auto) 0.1 (0.0-1.5) % Neut # (Auto) 15.1 H (1.4-5.7) K/uL Lymph # (Auto) 1.0 (0.6-2.4) K/uL [place] # (Auto) 1.1 H (0.0-0.8) K/uL Eos # (Auto) 0.1 (0.0-0.7) K/uL Baso # (Auto) 0.0 (0.0-0.1) K/uL Nucleated RBC % 0.0 /100WBC Nucleated RBCs # 0 K/uL Sodium 133 L (136-145) mmol/L Potassium 3.6 (3.5-5.1) mmol/L Chloride 100 (98-107) mmol/L Carbon Dioxide 20.9 L (21.0-32.0) mmol/L BUN 17 (7.0-18.0) mg/dL Creatinine 1.0 (0.6-1.0) mg/dL Est Cr Clr Drug Dosing 67.14 mL/min Estimated GFR (MDRD) 58.5 ml/min Glucose 100 (74-106) mg/dL Lactic Acid (0.4-2.0) mmol/L Calcium 8.8 (8.5-10.1) mg/dL Total Bilirubin 0.8 (0.2-1.0) mg/dL AST 59 H (15-37) IU/L ALT 78 H (14-63) IU/L Alkaline Phosphatase 111 (46-116) U/L Total Protein 7.7 (6.4-8.2) g/dL Albumin 3.7 (3.4-5.0) g/dL Globulin 4.0 (2.6-4.0) g/dL Albumin/Globulin Ratio 0.9 (0.9-1.6) Lipase 83 (73-393) U/L HCG, Qual (NEG) Urine Color YELLOW Urine Appearance SLT CLOUDY Urine pH 8.0 (5.0-8.0) Ur Specific [place] 1.020 (1.001-1.035) Urine Protein TRACE H (NEGATIVE) mg/dL Urine Glucose (UA) NEGATIVE (NEGATIVE) mg/dL Urine Ketones NEGATIVE (NEGATIVE) mg/dL Urine Occult Blood TRACE-INTACT H (NEGATIVE) Urine Nitrite POSITIVE H (NEGATIVE) Urine Bilirubin NEGATIVE (NEGATIVE) Urine Urobilinogen 0.2 (<2.0) EU/dL Ur Leukocyte Esterase MODERATE H (NEGATIVE) Urine RBC 0-2 (0-2/HPF) Urine WBC 15-20 (0-5/HPF) Ur Epithelial Cells RARE (NONE-FEW) Urine Bacteria 1+ H (NEGATIVE) SARS-CoV-2 RNA ([place]) (NEGATIVE) 01/07/21 01/07/21 01/07/21 Range/Units 16:30 16:30 17:15 WBC (4.0-11.0) K/uL RBC (4.30-5.90) M/uL Hgb (12.0-16.0) g/dL Hct (36.0-46.0) % MCV (80.0-98.0) fL MCH (27.0-32.0) pg MCHC (31.0-37.0) g/dL RDW Std Deviation (28.0-62.0) fl RDW Coeff of Xavier (11.0-15.0) % Plt Count (150-400) K/uL MPV (7.40-12.00) fL Neut % (Auto) (48.0-80.0) % Lymph % (Auto) (16.0-40.0) % [place] % (Auto) (0.0-15.0) % Eos % (Auto) (0.0-7.0) % Baso % (Auto) (0.0-1.5) % Neut # (Auto) (1.4-5.7) K/uL Lymph # (Auto) (0.6-2.4) K/uL [place] # (Auto) (0.0-0.8) K/uL Eos # (Auto) (0.0-0.7) K/uL Baso # (Auto) (0.0-0.1) K/uL Nucleated RBC % /100WBC Nucleated RBCs # K/uL Sodium (136-145) mmol/L Potassium (3.5-5.1) mmol/L Chloride (98-107) mmol/L Carbon Dioxide (21.0-32.0) mmol/L BUN (7.0-18.0) mg/dL Creatinine (0.6-1.0) mg/dL Est Cr Clr Drug Dosing mL/min Estimated GFR (MDRD) ml/min Glucose (74-106) mg/dL Lactic Acid 1.4 (0.4-2.0) mmol/L Calcium (8.5-10.1) mg/dL Total Bilirubin (0.2-1.0) mg/dL AST (15-37) IU/L ALT (14-63) IU/L Alkaline Phosphatase (46-116) U/L Total Protein (6.4-8.2) g/dL Albumin (3.4-5.0) g/dL Globulin (2.6-4.0) g/dL Albumin/Globulin Ratio (0.9-1.6) Lipase (73-393) U/L HCG, Qual NEGATIVE (NEG) Urine Color Urine Appearance Urine pH (5.0-8.0) Ur Specific [place] (1.001-1.035) Urine Protein (NEGATIVE) mg/dL Urine Glucose (UA) (NEGATIVE) mg/dL Urine Ketones (NEGATIVE) mg/dL Urine Occult Blood (NEGATIVE) Urine Nitrite (NEGATIVE) Urine Bilirubin (NEGATIVE) Urine Urobilinogen (<2.0) EU/dL Ur Leukocyte Esterase (NEGATIVE) Urine RBC (0-2/HPF) Urine WBC (0-5/HPF) Ur Epithelial Cells (NONE-FEW) Urine Bacteria (NEGATIVE) SARS-CoV-2 RNA ([place]) NEGATIVE (NEGATIVE) 01/08/21 01/08/21 Range/Units 05:18 05:20 WBC 14.20 H (4.0-11.0) K/uL RBC 3.32 L (4.30-5.90) M/uL Hgb 10.6 L (12.0-16.0) g/dL Hct 31.8 L (36.0-46.0) % MCV 95.8 (80.0-98.0) fL MCH 31.9 (27.0-32.0) pg MCHC 33.3 (31.0-37.0) g/dL RDW Std Deviation 48.1 (28.0-62.0) fl RDW Coeff of Xavier 14 (11.0-15.0) % Plt Count 214 (150-400) K/uL MPV 12.00 (7.40-12.00) fL Neut % (Auto) 81.8 H (48.0-80.0) % Lymph % (Auto) 10.4 L (16.0-40.0) % [place] % (Auto) 6.5 (0.0-15.0) % Eos % (Auto) 1.1 (0.0-7.0) % Baso % (Auto) 0.2 (0.0-1.5) % Neut # (Auto) 11.6 H (1.4-5.7) K/uL Lymph # (Auto) 1.5 (0.6-2.4) K/uL [place] # (Auto) 0.9 H (0.0-0.8) K/uL Eos # (Auto) 0.2 (0.0-0.7) K/uL Baso # (Auto) 0.0 (0.0-0.1) K/uL Nucleated RBC % 0.0 /100WBC Nucleated RBCs # 0 K/uL Sodium 137 (136-145) mmol/L Potassium 3.3 L (3.5-5.1) mmol/L Chloride 105 (98-107) mmol/L Carbon Dioxide 24.5 (21.0-32.0) mmol/L BUN 11 (7.0-18.0) mg/dL Creatinine 0.8 (0.6-1.0) mg/dL Est Cr Clr Drug Dosing 84.26 mL/min Estimated GFR (MDRD) > 60.0 ml/min Glucose 87 (74-106) mg/dL Lactic Acid (0.4-2.0) mmol/L Calcium 8.0 L (8.5-10.1) mg/dL Total Bilirubin (0.2-1.0) mg/dL AST (15-37) IU/L ALT (14-63) IU/L Alkaline Phosphatase (46-116) U/L Total Protein (6.4-8.2) g/dL Albumin (3.4-5.0) g/dL Globulin (2.6-4.0) g/dL Albumin/Globulin Ratio (0.9-1.6) Lipase (73-393) U/L HCG, Qual (NEG) Urine Color Urine Appearance Urine pH (5.0-8.0) Ur Specific [place] (1.001-1.035) Urine Protein (NEGATIVE) mg/dL Urine Glucose (UA) (NEGATIVE) mg/dL Urine Ketones (NEGATIVE) mg/dL Urine Occult Blood (NEGATIVE) Urine Nitrite (NEGATIVE) Urine Bilirubin (NEGATIVE) Urine Urobilinogen (<2.0) EU/dL Ur Leukocyte Esterase (NEGATIVE) Urine RBC (0-2/HPF) Urine WBC (0-5/HPF) Ur Epithelial Cells (NONE-FEW) Urine Bacteria (NEGATIVE) SARS-CoV-2 RNA ([place]) (NEGATIVE) Result Diagrams: 01/08/21 05:20 01/08/21 05:18 Sepsis Event Note - Evaluation Sepsis Screening Result: No Definite Risk - Focused Exam Vital Signs: Vital Signs Temp Pulse Resp BP Pulse Ox Pulse Ox 01/08/21 08:00 98.6 F 85 16 98/57 L 94 L 01/08/21 04:00 99.8 F 97 18 99/50 L 97 01/08/21 00:00 99 F 82 17 110/62 98 01/07/21 23:48 98 01/07/21 22:20 98.0 F 78 18 116/67 100 01/07/21 21:30 80 102/65 99 01/07/21 21:16 84 18 107/61 98 - Problem List & Annotations (1) Acute pyelonephritis SNOMED Code(s): 96326154 Code(s): N10 - ACUTE PYELONEPHRITIS Status: Acute Current Visit: Yes - Problem List Review Problem List Initiated/Reviewed/Updated: Yes - My Orders Last 24 Hours: My Active Orders 01/08/21 08:12 Ondansetron [Zofran] 4 mg IVPUSH Q4H PRN 01/08/21 08:15 Sodium Chloride 0.9% [Normal Saline] 1,000 ml IV Q8H Sodium Chloride 0.9% [Normal Saline] 500 ml IV .BOLUS - Plan Plan:: 50 yo female admitted for acute pyelonephritis. 1. Acute pyelonephritis -Continue with IV Rocephin. - Blood and urine cultures are pending -Leukocytosis improving -Afebrile overnight -Give 500 ml normal saline bolus this morning as blood pressure soft -Start normal saline 125 mL/h -Oxycodone as needed pain VTE prophylaxis: Lovenox CODE STATUS: Full code Dispo: will make inpatient as she will need greater than 2 midnight stay
[2021-01-08] MEDS: oxyCODONE 5 MG Tab PO PRN (08:41)
[2021-01-08] MEDS: Sodium Chloride 0.9% 1,000 ML IV SCH ×3 (09:16→17:05)
[2021-01-08] MEDS: SUMAtriptan 6 MG/0.5 ML SDV SUBCUT PRN ×2 (14:11→20:07)
[2021-01-08] MEDS: cefTRIAXone 1 GM in Premix Bag 1 BAG IV SCH (17:40)
[2021-01-08] MEDS: Enoxaparin 40 MG/0.4 ML Syringe SUBCUT SCH (23:46)
[2021-01-09] MEDS: Sodium Chloride 0.9% 1,000 ML IV SCH ×4 (02:05→18:25)
[2021-01-09 06:15] LABS: BLOOD UREA NITROGEN,BUN 9 mg/dL (7.0-18.0); CARBON DIOXIDE,CO2 22.9 mmol/L (21.0-32.0); CHLORIDE,CL 101 mmol/L (98-107); GLUCOSE RANDOM 89 mg/dL (74-106); SODIUM,NA 137 mmol/L (136-145)
[2021-01-09] MEDS ORDERED: Potassium Chloride 20 MEQ Tab.ER PO ONE (07:57)
[2021-01-09] MEDS ORDERED: Magnesium Sulfate 2 GM in Sodium Chloride 0.9% with KCl 1,000 ML IV ONE (07:59)
--- NOTE | 2021-01-09 08:00 | PCM.PN ---
- General Info Date of Service: 01/09/21 Admission Dx/Problem (Free Text): Admission Diagnosis/Problem Admission Diagnosis/Problem Acute pyelonephritis Subjective Update: Feeling a little improved, headache better but continues. Abdominal tenderness better, but still feels sore. Appetite decreased still, tolerating CL but softer foods tend to make her nauseated. Denies chest pain or SOB. Up ambulating as tolerated. Functional Status: Reports: Tolerating Diet (tolerating CL ). Denies: Pain Controlled - Review of Systems General: Reports: Malaise. Denies: Fever, Weakness HEENT: Reports: Headaches (frontal pounding, no visual changes. ). Denies: Sore Throat, Visual Changes Pulmonary: Reports: No Symptoms. Denies: Shortness of Breath, Cough, Sputum Cardiovascular: Reports: No Symptoms. Denies: Chest Pain Gastrointestinal: Reports: Abdominal Pain, Decreased Appetite, Nausea. Denies: Diarrhea, Vomiting Genitourinary: Reports: No Symptoms. Denies: Dysuria, Frequency Musculoskeletal: Reports: No Symptoms Skin: Reports: No Symptoms Neurological: Reports: No Symptoms Psychiatric: Reports: No Symptoms - Patient Data Vitals - Most Recent: Last Vital Signs Temp 98.6 F 01/09/21 07:49 Pulse 74 01/09/21 07:49 Resp 16 01/09/21 07:49 BP 120/65 01/09/21 07:49 Pulse Ox 95 01/09/21 07:49 Weight - Most Recent: 70.896 kg I&O - Last 24 Hours: Intake & Output 01/08/21 01/09/21 01/09/21 22:59 06:59 14:59 Intake Total 2718 2934 Output Total 1550 2250 Balance 1168 684 Lab Results Last 24 Hours: Laboratory Results - last 24 hr 01/09/21 01/09/21 Range/Units 05:19 05:19 WBC 9.00 (4.0-11.0) K/uL RBC 3.35 L (4.30-5.90) M/uL Hgb 10.7 L (12.0-16.0) g/dL Hct 31.9 L (36.0-46.0) % MCV 95.2 (80.0-98.0) fL MCH 31.9 (27.0-32.0) pg MCHC 33.5 (31.0-37.0) g/dL RDW Std Deviation 45.9 (28.0-62.0) fl RDW Coeff of Xavier 13 (11.0-15.0) % Plt Count 188 (150-400) K/uL MPV 12.30 H (7.40-12.00) fL Neut % (Auto) 72.4 (48.0-80.0) % Lymph % (Auto) 15.7 L (16.0-40.0) % Erie % (Auto) 8.4 (0.0-15.0) % Eos % (Auto) 3.3 (0.0-7.0) % Baso % (Auto) 0.2 (0.0-1.5) % Neut # (Auto) 6.5 H (1.4-5.7) K/uL Lymph # (Auto) 1.4 (0.6-2.4) K/uL [place] # (Auto) 0.8 (0.0-0.8) K/uL Eos # (Auto) 0.3 (0.0-0.7) K/uL Baso # (Auto) 0.0 (0.0-0.1) K/uL Nucleated RBC % 0.0 /100WBC Nucleated RBCs # 0 K/uL Sodium 137 (136-145) mmol/L Potassium 3.0 L (3.5-5.1) mmol/L Chloride 101 (98-107) mmol/L Carbon Dioxide 22.9 (21.0-32.0) mmol/L BUN 9 (7.0-18.0) mg/dL Creatinine 0.6 (0.6-1.0) mg/dL Est Cr Clr Drug Dosing 112.34 mL/min Estimated GFR (MDRD) > 60.0 ml/min Glucose 89 (74-106) mg/dL Calcium 8.2 L (8.5-10.1) mg/dL Magnesium 1.6 L (1.8-2.4) mg/dL [place] Results Last 24 Hours: Microbiology 01/07/21 17:20 Aerobic Blood Culture - Preliminary Blood - Venous - Lab Draw NO GROWTH AFTER 1 DAY Anaerobic Blood Culture - Preliminary NO GROWTH AFTER 1 DAY 01/07/21 17:15 Aerobic Blood Culture - Preliminary Blood - Venous NO GROWTH AFTER 1 DAY Anaerobic Blood Culture - Preliminary NO GROWTH AFTER 1 DAY Med Orders - Current: Current Medications Acetaminophen (Acetaminophen 325 Mg Tab) 650 mg PO Q6H PRN PRN Reason: Pain (Mild 1-3)/fever Last Admin: 01/08/21 05:23 Dose: 650 mg Documented by: Enoxaparin Sodium (Enoxaparin 40 Mg/0.4 Ml Syringe) 40 mg SUBCUT Q24H [facility] Last Admin: 01/08/21 23:46 Dose: 40 mg Documented by: Ceftriaxone Sodium/Dextrose 1 (gm/ Premix) 50 mls @ 100 mls/hr IV Q24H [facility] Last Admin: 01/08/21 17:40 Dose: 100 mls/hr Documented by: Sodium Chloride (Normal Saline) 1,000 mls @ 125 mls/hr IV Q8H [facility] Last Admin: 01/09/21 02:05 Dose: 125 mls/hr Documented by: Magnesium Sulfate 2 gm/Potassium Chloride/Sodium Chloride 1,004 mls @ 125 mls/hr IV ONETIME ONE Stop: 01/09/21 16:00 Ondansetron HCl (Ondansetron 4 Mg/2 Ml Sdv) 4 mg IVPUSH Q4H PRN PRN Reason: Nausea Oxycodone HCl (Oxycodone 5 Mg Tab) 5 mg PO Q4H PRN PRN Reason: Pain (moderate 4-6) Last Admin: 01/08/21 08:41 Dose: 5 mg Documented by: Potassium Chloride (Potassium Chloride 20 Meq Tab.Er) 40 meq PO ONETIME ONE Stop: 01/09/21 07:58 Discontinued Medications Sodium Chloride (Normal Saline) 1,000 mls @ 999 mls/hr IV BOLUS ONE Stop: 01/07/21 16:52 Last Admin: 01/07/21 16:34 Dose: 999 mls/hr Documented by: Ceftriaxone Sodium/Dextrose 1 (gm/ Premix) 50 mls @ 100 mls/hr IV ONETIME ONE Stop: 01/07/21 17:28 Last Admin: 01/07/21 17:44 Dose: 100 mls/hr Documented by: Sodium Chloride (Normal Saline) 1,000 mls @ 999 mls/hr IV STAT ONE Stop: 01/07/21 19:49 Last Admin: 01/07/21 21:06 Dose: 999 mls/hr Documented by: Sodium Chloride (Normal Saline) 1,000 mls @ 125 mls/hr IV ASDIRECTED [facility] Stop: 01/08/21 07:29 Last Admin: 01/07/21 23:42 Dose: 125 mls/hr Documented by: Sodium Chloride (Normal Saline) 500 mls @ 999 mls/hr IV .BOLUS [facility] Last Admin: 01/08/21 08:40 Dose: 999 mls/hr Documented by: Iopamidol (Iopamidol 755 Mg/Ml 500 Ml Multipack Bottle) 100 ml IVPUSH ONETIME STA Stop: 01/07/21 17:44 Last Admin: 01/07/21 17:43 Dose: 100 ml Documented by: Morphine Sulfate (Morphine 4 Mg/Ml Syringe) 4 mg IVPUSH ONETIME ONE Stop: 01/07/21 18:43 Last Admin: 01/07/21 21:10 Dose: 4 mg Documented by: Morphine Sulfate (Morphine 4 Mg/Ml Syringe) Confirm Administered Dose 4 mg .ROUTE .STK-MED ONE Stop: 01/07/21 21:10 Last Admin: 01/07/21 23:54 Dose: Not Given Documented by: Ondansetron HCl (Ondansetron 4 Mg/2 Ml Sdv) 4 mg IVPUSH ONETIME ONE Stop: 01/07/21 15:53 Last Admin: 01/07/21 16:34 Dose: 4 mg Documented by: Sumatriptan Succinate (Sumatriptan 6 Mg/0.5 Ml Sdv) 6 mg SUBCUT Q2HR PRN PRN Reason: migraine Last Admin: 01/08/21 20:07 Dose: 6 mg Documented by: - Exam Quality Assessment: DVT Prophylaxis. No: Supplemental Oxygen General: Alert, Oriented, Cooperative, No Acute Distress HEENT: Pupils Equal, Pupils Reactive Neck: Supple Lungs: Clear to Auscultation, Normal Respiratory Effort Cardiovascular: Regular Rate, Regular Rhythm GI/Abdominal Exam: Normal Bowel Sounds, Soft, Tender (scant tenderness, improving daily) Back Exam: Normal Inspection, Full Range of Motion Extremities: Normal Inspection, Normal Range of Motion, Non-Tender, No Pedal Edema Skin: Warm, Dry Neurological: No New Focal Deficit Psy/Mental Status: Alert, Normal Affect, Normal Mood - Patient Data Lab Results Last 24 hrs: Laboratory Results - last 24 hr 01/09/21 01/09/21 Range/Units 05:19 05:19 WBC 9.00 (4.0-11.0) K/uL RBC 3.35 L (4.30-5.90) M/uL Hgb 10.7 L (12.0-16.0) g/dL Hct 31.9 L (36.0-46.0) % MCV 95.2 (80.0-98.0) fL MCH 31.9 (27.0-32.0) pg MCHC 33.5 (31.0-37.0) g/dL RDW Std Deviation 45.9 (28.0-62.0) fl RDW Coeff of Xavier 13 (11.0-15.0) % Plt Count 188 (150-400) K/uL MPV 12.30 H (7.40-12.00) fL Neut % (Auto) 72.4 (48.0-80.0) % Lymph % (Auto) 15.7 L (16.0-40.0) % Erie % (Auto) 8.4 (0.0-15.0) % Eos % (Auto) 3.3 (0.0-7.0) % Baso % (Auto) 0.2 (0.0-1.5) % Neut # (Auto) 6.5 H (1.4-5.7) K/uL Lymph # (Auto) 1.4 (0.6-2.4) K/uL [place] # (Auto) 0.8 (0.0-0.8) K/uL Eos # (Auto) 0.3 (0.0-0.7) K/uL Baso # (Auto) 0.0 (0.0-0.1) K/uL Nucleated RBC % 0.0 /100WBC Nucleated RBCs # 0 K/uL Sodium 137 (136-145) mmol/L Potassium 3.0 L (3.5-5.1) mmol/L Chloride 101 (98-107) mmol/L Carbon Dioxide 22.9 (21.0-32.0) mmol/L BUN 9 (7.0-18.0) mg/dL Creatinine 0.6 (0.6-1.0) mg/dL Est Cr Clr Drug Dosing 112.34 mL/min Estimated GFR (MDRD) > 60.0 ml/min Glucose 89 (74-106) mg/dL Calcium 8.2 L (8.5-10.1) mg/dL Magnesium 1.6 L (1.8-2.4) mg/dL Result Diagrams: 01/09/21 05:19 01/09/21 05:19 [place] Results Last 24 hrs: Microbiology 01/07/21 17:20 Aerobic Blood Culture - Preliminary Blood - Venous - Lab Draw NO GROWTH AFTER 1 DAY Anaerobic Blood Culture - Preliminary NO GROWTH AFTER 1 DAY 01/07/21 17:15 Aerobic Blood Culture - Preliminary Blood - Venous NO GROWTH AFTER 1 DAY Anaerobic Blood Culture - Preliminary NO GROWTH AFTER 1 DAY Sepsis Event Note - Evaluation Sepsis Screening Result: Possible Sepsis Risk - Focused Exam Vital Signs: Vital Signs Temp Pulse Resp BP Pulse Ox 01/09/21 07:49 98.6 F 74 16 120/65 95 01/09/21 04:21 98.1 F 82 16 131/73 95 01/08/21 23:43 98.6 F 80 16 131/69 95 - Problem List & Annotations (1) Acute pyelonephritis SNOMED Code(s): 78120719 Code(s): N10 - ACUTE PYELONEPHRITIS Status: Acute Current Visit: Yes (2) Migraine SNOMED Code(s): 61731493 Code(s): G43.909 - MIGRAINE, UNSP, NOT INTRACTABLE, WITHOUT STATUS MIGRAINOSUS Status: Acute Current Visit: Yes Qualifiers: Migraine type: without aura Intractability: intractable (3) Hypokalemia SNOMED Code(s): 79477389 Code(s): E87.6 - HYPOKALEMIA Status: Acute Current Visit: Yes - Problem List Review Problem List Initiated/Reviewed/Updated: Yes - My Orders Last 24 Hours: My Active Orders 01/08/21 08:12 Ondansetron [Zofran] 4 mg IVPUSH Q4H PRN 01/08/21 08:15 Sodium Chloride 0.9% [Normal Saline] 1,000 ml IV Q8H 01/08/21 08:18 Intake and Output [RC] Q12H 01/08/21 10:11 Patient Status [ADT] Stat 01/09/21 07:57 Potassium Chloride [Klor-Con M20] 40 meq PO ONETIME ONE 01/09/21 07:59 Magnesium Sulfate [Magnesium Sulfate 50%] 2 gm Sodium Chloride 0.9% with KCl [Normal Saline with 40 mEq KCl] 1,000 ml IV ONETIME 01/10/21 05:11 BASIC METABOLIC PANEL,BMP [CHEM] AM CBC WITH AUTO DIFF [HEME] AM MG [MAGNESIUM] [CHEM] AM 01/11/21 05:11 BASIC METABOLIC PANEL,BMP [CHEM] AM CBC WITH AUTO DIFF [HEME] AM MG [MAGNESIUM] [CHEM] AM - Plan Plan:: 50 yo female admitted for acute pyelonephritis. 1. Acute pyelonephritis -Continue with IV Rocephin. - Blood cultures negative -urine cultures are pending -Leukocytosis resolved -Afebrile overnight -Continue normal saline 125 mL/h -Oxycodone as needed pain 2. Migraine - Imitrex yesterday helps - Continues today, but milder. - Will give another dose Imitrex and monitor, may repeat dose 2 hours after if headache not relieved 3. Hypokalemia/hypomagnesemia - 40 meq PO and IV today - 2 Gm Magnesemia IV - Recheck in am VTE prophylaxis: Lovenox CODE STATUS: Full code Dispo: 1-2 days pending improvement.
[2021-01-09] MEDS: oxyCODONE 5 MG Tab PO PRN ×2 (09:09→19:16)
[2021-01-09] MEDS ORDERED: SUMAtriptan 6 MG/0.5 ML SDV SUBCUT PRN (09:25)
[2021-01-09] MEDS: cefTRIAXone 1 GM in Premix Bag 1 BAG IV SCH (18:27)
[2021-01-09] MEDS: Enoxaparin 40 MG/0.4 ML Syringe SUBCUT SCH (23:54)
[2021-01-10] MEDS: Sodium Chloride 0.9% 1,000 ML IV SCH ×2 (03:11→09:13)
[2021-01-10 06:49] LABS: BLOOD UREA NITROGEN,BUN 9 mg/dL (7.0-18.0); CARBON DIOXIDE,CO2 23.2 mmol/L (21.0-32.0); CHLORIDE,CL 103 mmol/L (98-107); GLUCOSE RANDOM 87 mg/dL (74-106); POTASSIUM,K 3.8 mmol/L (3.5-5.1); SODIUM,NA 136 mmol/L (136-145)
--- NOTE | 2021-01-10 11:06 | PCM.DCSUM1 ---
Discharge Summary - Hospital Course Brief History: 50 yo female who presented with one day history of right kidney pain, and dysuria and urinary urgency. Patient report history of frequent UTIs. She was found to have WBC of 17,000 and pyuria on UA. CT scan of abdomen reported right ureteral and renal pelvic enhancement with sligh perinephric edema. - Discharge Data Discharge Date: 01/10/21 Discharge Disposition: Home, Self-Care 01 Condition: Good - Referral to Home Health Primary Care Physician: PCP None - Discharge Diagnosis/Problem(s) (1) Acute pyelonephritis SNOMED Code(s): 46370510 ICD Code: N10 - ACUTE PYELONEPHRITIS Status: Acute Current Visit: Yes (2) Migraine SNOMED Code(s): 06979252 ICD Code: G43.909 - MIGRAINE, UNSP, NOT INTRACTABLE, WITHOUT STATUS MIGRAINOSUS Status: Acute Current Visit: Yes Qualifiers: Migraine type: without aura Intractability: intractable (3) Hypokalemia SNOMED Code(s): 48547123 ICD Code: E87.6 - HYPOKALEMIA Status: Acute Current Visit: Yes - Patient Summary/Data Hospital Course: Admission diagnoses: Pyelonephritis abdominal pain Discharge Diagnoses: Pyelonephritis Vania was admitted secondary to pyelonephritis, she was treated with IV Rocephin and IV fluids. BC returned negative and E coli in UC, WENDY is still pending but patient is very eager for discharge today. Patient will be discharged home on 5 more days of Levaquin and counseled if WENDY returns with resistant bacteria she will be contacted with change to antibiotics. She reports history of being told she has Hepatitis C in [place], but was never treated per her reports. We attempted to get records, but [place] reported no patient of her name there. Will obtain hepatitis panel now and have her follow with PCP for results and referral to ID if needed, she was agreeable with this. She is to continue to take antibiotics as prescribed and return to ED if concerns should arise. - Patient Instructions Diet: Regular Diet as Tolerated Activity: As Tolerated, No Strenuous Activities Showering/Bathing: May Shower Notify Provider of: Fever, Increased Pain, Swelling and Redness, Drainage, Nausea and/or Vomiting - Discharge Plan *PRESCRIPTION DRUG MONITORING PROGRAM REVIEWED*: Not Applicable *COPY OF PRESCRIPTION DRUG MONITORING REPORT IN PATIENT JADIEL: Not Applicable Prescriptions/Med Rec: levoFLOXacin [Levaquin] 750 mg PO DAILY #6 tab Home Medications: Home Meds Folic Acid 01/07/21 [History] Lidocaine 1 each TP ASDIRECTED PRN 01/07/21 [History] Multivitamin [Multi-Vitamin Daily] 01/07/21 [History] Thiamine HCl [Vitamin B-1] 01/07/21 [History] levoFLOXacin [Levaquin] 750 mg PO DAILY #6 tab 01/10/21 [Rx] Oxygen Therapy Mode: Room Air Patient Handouts: Pyelonephritis, Adult, Levofloxacin tablets Referrals: Ricardo Mclean NP [Ordering Only Provider] - 01/17/21 10:00 am - Discharge Summary/Plan Comment DC Time >30 min.: No Total # of Minutes for Discharge Time: 25 - Patient Data Vitals - Most Recent: Last Vital Signs Temp 98.3 F 01/10/21 09:00 Pulse 65 01/10/21 09:00 Resp 14 01/10/21 09:00 BP 116/70 01/10/21 09:00 Pulse Ox 95 01/10/21 09:00 Weight - Most Recent: 70.896 kg I&O - Last 24 hours: Intake & Output 01/09/21 01/10/21 01/10/21 22:59 06:59 14:59 Intake Total 3866 3188 Output Total 2650 3150 Balance 1216 38 Lab Results - Last 24 hrs: Laboratory Results - last 24 hr 01/10/21 01/10/21 Range/Units 06:02 06:02 WBC 5.72 (4.0-11.0) K/uL RBC 3.41 L (4.30-5.90) M/uL Hgb 10.8 L (12.0-16.0) g/dL Hct 32.3 L (36.0-46.0) % MCV 94.7 (80.0-98.0) fL MCH 31.7 (27.0-32.0) pg MCHC 33.4 (31.0-37.0) g/dL RDW Std Deviation 44.9 (28.0-62.0) fl RDW Coeff of Xavier 13 (11.0-15.0) % Plt Count 196 (150-400) K/uL MPV 11.50 (7.40-12.00) fL Neut % (Auto) 52.4 (48.0-80.0) % Lymph % (Auto) 27.6 (16.0-40.0) % [place] % (Auto) 10.5 (0.0-15.0) % Eos % (Auto) 8.6 H (0.0-7.0) % Baso % (Auto) 0.9 (0.0-1.5) % Neut # (Auto) 3.0 (1.4-5.7) K/uL Lymph # (Auto) 1.6 (0.6-2.4) K/uL Millard # (Auto) 0.6 (0.0-0.8) K/uL Eos # (Auto) 0.5 (0.0-0.7) K/uL Baso # (Auto) 0.1 (0.0-0.1) K/uL Nucleated RBC % 0.0 /100WBC Nucleated RBCs # 0 K/uL Sodium 136 (136-145) mmol/L Potassium 3.8 (3.5-5.1) mmol/L Chloride 103 (98-107) mmol/L Carbon Dioxide 23.2 (21.0-32.0) mmol/L BUN 9 (7.0-18.0) mg/dL Creatinine 0.7 (0.6-1.0) mg/dL Est Cr Clr Drug Dosing 96.29 mL/min Estimated GFR (MDRD) > 60.0 ml/min Glucose 87 (74-106) mg/dL Calcium 8.3 L (8.5-10.1) mg/dL Magnesium 1.8 (1.8-2.4) mg/dL [facility] Results - Last 24 hrs: Microbiology 01/07/21 16:30 Urine Culture - Preliminary Urine Escherichia Coli 01/07/21 17:20 Aerobic Blood Culture - Preliminary Blood - Venous - Lab Draw NO GROWTH AFTER 2 DAYS Anaerobic Blood Culture - Preliminary NO GROWTH AFTER 2 DAYS 01/07/21 17:15 Aerobic Blood Culture - Preliminary Blood - Venous NO GROWTH AFTER 2 DAYS Anaerobic Blood Culture - Preliminary NO GROWTH AFTER 2 DAYS Med Orders - Current: Current Medications Acetaminophen (Acetaminophen 325 Mg Tab) 650 mg PO Q6H PRN PRN Reason: Pain (Mild 1-3)/fever Last Admin: 01/08/21 05:23 Dose: 650 mg Documented by: Enoxaparin Sodium (Enoxaparin 40 Mg/0.4 Ml Syringe) 40 mg SUBCUT Q24H [facility] Last Admin: 01/09/21 23:54 Dose: 40 mg Documented by: Sodium Chloride (Normal Saline) 1,000 mls @ 125 mls/hr IV Q8H [facility] Last Admin: 01/10/21 09:13 Dose: Not Given Documented by: Levofloxacin (Levofloxacin 750 Mg Tab) 750 mg PO Q24H [facility] Ondansetron HCl (Ondansetron 4 Mg/2 Ml Sdv) 4 mg IVPUSH Q4H PRN PRN Reason: Nausea Oxycodone HCl (Oxycodone 5 Mg Tab) 5 mg PO Q4H PRN PRN Reason: Pain (moderate 4-6) Last Admin: 01/09/21 19:16 Dose: 5 mg Documented by: Sumatriptan Succinate (Sumatriptan 6 Mg/0.5 Ml Sdv) 6 mg SUBCUT Q2H PRN PRN Reason: migraine Last Admin: 01/09/21 09:38 Dose: 6 mg Documented by: Discontinued Medications Sodium Chloride (Normal Saline) 1,000 mls @ 999 mls/hr IV BOLUS ONE Stop: 01/07/21 16:52 Last Admin: 01/07/21 16:34 Dose: 999 mls/hr Documented by: Ceftriaxone Sodium/Dextrose 1 (gm/ Premix) 50 mls @ 100 mls/hr IV ONETIME ONE Stop: 01/07/21 17:28 Last Admin: 01/07/21 17:44 Dose: 100 mls/hr Documented by: Sodium Chloride (Normal Saline) 1,000 mls @ 999 mls/hr IV STAT ONE Stop: 01/07/21 19:49 Last Admin: 01/07/21 21:06 Dose: 999 mls/hr Documented by: Ceftriaxone Sodium/Dextrose 1 (gm/ Premix) 50 mls @ 100 mls/hr IV Q24H [facility] Last Admin: 01/09/21 18:27 Dose: 100 mls/hr Documented by: Sodium Chloride (Normal Saline) 1,000 mls @ 125 mls/hr IV ASDIRECTED [facility] Stop: 01/08/21 07:29 Last Admin: 01/07/21 23:42 Dose: 125 mls/hr Documented by: Sodium Chloride (Normal Saline) 500 mls @ 999 mls/hr IV .BOLUS [facility] Last Admin: 01/08/21 08:40 Dose: 999 mls/hr Documented by: Magnesium Sulfate 2 gm/Potassium Chloride/Sodium Chloride 1,004 mls @ 125 mls/hr IV ONETIME ONE Stop: 01/09/21 16:00 Last Admin: 01/09/21 09:36 Dose: 125 mls/hr Documented by: Iopamidol (Iopamidol 755 Mg/Ml 500 Ml Multipack Bottle) 100 ml IVPUSH ONETIME STA Stop: 01/07/21 17:44 Last Admin: 01/07/21 17:43 Dose: 100 ml Documented by: Morphine Sulfate (Morphine 4 Mg/Ml Syringe) 4 mg IVPUSH ONETIME ONE Stop: 01/07/21 18:43 Last Admin: 01/07/21 21:10 Dose: 4 mg Documented by: Morphine Sulfate (Morphine 4 Mg/Ml Syringe) Confirm Administered Dose 4 mg .ROUTE .STK-MED ONE Stop: 01/07/21 21:10 Last Admin: 01/07/21 23:54 Dose: Not Given Documented by: Ondansetron HCl (Ondansetron 4 Mg/2 Ml Sdv) 4 mg IVPUSH ONETIME ONE Stop: 01/07/21 15:53 Last Admin: 01/07/21 16:34 Dose: 4 mg Documented by: Potassium Chloride (Potassium Chloride 20 Meq Tab.Er) 40 meq PO ONETIME ONE Stop: 01/09/21 07:58 Last Admin: 01/09/21 08:59 Dose: 40 meq Documented by: Sumatriptan Succinate (Sumatriptan 6 Mg/0.5 Ml Sdv) 6 mg SUBCUT Q2HR PRN PRN Reason: migraine Last Admin: 01/08/21 20:07 Dose: 6 mg Documented by:
[2021-01-10] MEDS ORDERED: Levofloxacin 750 MG Tab PO SCH (11:15)
== END 2021-01-10 11:30 | disposition home or self-care (01) | DRG 690 ==
LOC: MW.ED 14:53 → MW.MS 18:43 → OBSVTOIN 01-08 10:11 → MW.MS 01-08 11:06 → MW.OB 01-09 16:59 → MW.MS 01-09 17:01
PROVIDERS: ADMIT Internal Medicine; ATTEND Internal Medicine
DX: N10 Acute pyelonephritis (principal); B96.20 Unspecified Escherichia coli [E. coli] as the cause of diseases classified elsewhere; E87.6 Hypokalemia; G43.019 Migraine without aura, intractable, without status migrainosus; Z20.822 Contact with and (suspected) exposure to COVID-19; B19.20 Unspecified viral hepatitis C without hepatic coma; Z88.8 Allergy status to other drugs, medicaments and biological substances; Z87.891 Personal history of nicotine dependence
CPT/HCPCS: 36415; 71045; 71045-26; 74177; 74177-26; 80048; 80053; 80074; 81001; 83605; 83690; 83735; 84703; 85025; 87040; 87086; 87088; 87186; 96365; 96372; 96375; 99285-25; A9270-GY; G0378; J0696; J1650; J2270; J2405; J3030; J3475; J3480; J7030; J7040; Q9967; U0002